=== PATIENT | female | born 1985 | race Two or more races ===

== ENCOUNTER 2021-03-31 13:15 | Inpatient (IN) | payer OTHER ==
[~2021-03-31] VITALS: Ht 162.6 cm; Wt 3.2 kg
[2021-04-26] MEDS ORDERED: PRENATAL CAPLE1 EAC1 (05:48)
[2021-04-29] MEDS ORDERED: PREPLUS CA-FE1 EACH PO (13:31)
[2021-04-29] MEDS ORDERED: SIMETHICONE125 M1 PO (13:31)
[2021-04-29] MEDS ORDERED: DOCUSATE SODIU100 MG PO (13:31)
[2021-04-29] MEDS ORDERED: IBUPROFEN800 MG PO (13:32)
== END 2021-04-29 14:48 | disposition home or self-care (01) | DRG 788 ==
LOC: SURG-SUITE 04-26 05:18 → LDR 04-26 05:18 → SURG-SUITE 04-26 08:43 → OB/GYN 04-26 13:15 → SURG-SUITE 04-29 14:48
PROVIDERS: ADMIT Obstetrics & Gynecology; ATTEND Obstetrics & Gynecology
PROC: 4A1HXFZ Monitoring of Products of Conception, Cardiac Rhythm, External Approach (ICD-10-PCS; 2021-04-26)
PROC: 10D00Z1 Extraction of Products of Conception, Low, Open Approach (ICD-10-PCS; principal; 2021-04-26 13:00)
DX: O77.0 Labor and delivery complicated by meconium in amniotic fluid (principal); O42.02 Full-term premature rupture of membranes, onset of labor within 24 hours of rupture; O48.0 Post-term pregnancy; Z3A.40 40 weeks gestation of pregnancy; Z37.0 Single live birth; O99.214 Obesity complicating childbirth; E66.9 Obesity, unspecified